=== PATIENT | female | born 1980 | race Two or more races ===

== ENCOUNTER 2025-02-15 10:24 | Emergency (ER) | payer OTHER ==
[~2025-02-15] VITALS: Ht 160 cm; Wt 105.2 kg
[~2025-02-15 10:24] MED LIST: GABAPENTIN300 MG PO; IBUPROFEN800 MG PO; POLY119PG PO; SIMETHICONE125 M1 PO
[2025-02-15] MEDS ORDERED: ACETAMINOPHEN 325 MG TABLET PO ONE (11:30)
[2025-02-15] MEDS ORDERED: GUAIFENESIN 200 MG/10 ML BLIST.PACK PO ONE ×2 (11:30→11:53)
[2025-02-15] MEDS ORDERED: ACETAMINOPHEN 500 MG GEL..CAP PO ONE (11:53)
[2025-02-15 13:05] LABS: BASO % 0.6 % (0.1-1.2); EOS # 0.10 (0.04-0.54); EOS % 1.4 % (0.7-7.0); LYMPH # 1.80 (1.18-3.74); LYMPH % 25.5 % (19.3-53.1); MEAN PLATELET VOLUME 10.20 fl (9.4-12.4); MONO # 0.82 (0.24-0.82); MONO % 11.6 % (4.7-12.5); NEUT # 4.28 (1.56-6.13); NEUT % 60.5 % (34.0-71.1); RED CELL DISTRIBUTION WIDTH 12.6 % (11.6-14.4)
[2025-02-15 13:27] LABS: COVID-19 AG NEGATIVE (NEGATIVE)
[2025-02-15 13:35] LABS: ALT/SGPT 19.0 U/L (12-78); AST/SGOT 15.0 U/L (15-37); BILIRUBIN TOTAL 0.36 mg/dL (0.3-1.2); BUN CREA RATIO 14.0 (7.0-25.0); CREATININE SERUM 0.69 mg/dL (0.55-1.02); GFR 92.0; GLOBULINA 3.8 G/DL (2.4-3.5); GLUCOSE FASTING 85.0 mg/dL (65-100); OSMOLALITY SERUM 283.0 MOSM/KG (275-295)
== END 2025-02-15 17:23 | disposition home or self-care (01) ==
LOC: ER 10:24
PROVIDERS: General Practice
DX: J11.1 Influenza due to unidentified influenza virus with other respiratory manifestations (principal); Z20.822 Contact with and (suspected) exposure to COVID-19; Z91.013 Allergy to seafood